=== PATIENT | female | born 2000 | race Caucasian/White ===

== ENCOUNTER → 2022-04-28 | Outpatient (CLI) | payer BC ==
--- NOTE | 2022-04-28 14:02 | US ---
EXAMINATION TYPE: US thyroid st tissue head/neck DATE OF EXAM: 04/28/2022 COMPARISON: NONE CLINICAL HISTORY: R94.6 ABNORMAL RESULTS OF THYROID FUNCTION STUDIES. Abnormal results of thyroid fun ction studies. GLAND SIZE: Right Lobe: 5.0 x 2.0 x 2.2 cm Overall Parenchyma: Very heterogenous, Limiting visibility of any possible nodules Left Lobe: 5.6 x 1.7 x 1.9 cm Overall Parenchyma: Very heterogeneous, Limiting visibility of any possible nodules Isthmus Thickness: 0.35 cm NODULES RIGHT: # of nodules measured on right: 0 LEFT: # of nodules measured on left: 0 ISTHMUS: # of nodules measured in the isthmus: 0 Bilateral neck scanned, no evidence of lymphadenopathy. IMPRESSION: Heterogenous appearance to the thyroid. Discrete suspicious nodules not identified.
== END | disposition home or self-care (01) ==
LOC: RADUSWWP 12:52
PROVIDERS: ATTEND Family Medicine
DX: R94.6 Abnormal results of thyroid function studies (principal)
CPT/HCPCS: 76536